=== PATIENT | male | born 1960 | race Two or more races ===

== ENCOUNTER 2020-02-23 02:21 | Emergency (ER) | payer BC ==
[~2020-02-23] VITALS: Ht 162.6 cm; Wt 79.4 kg
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
[2020-02-23] MEDS ORDERED: IBUPROFEN 400 MG TABLET PO ONE (02:30)
[2020-02-23] MEDS ORDERED: IBUPROFEN 400 MG TABLET ONE (02:33)
--- NOTE | 2020-02-23 02:40 | NUR ---
PT BROUGHT BY RADIOLOGY TO CT
--- NOTE | 2020-02-23 04:45 | NUR ---
Patient discharged to home in stable condition. Written and verbal after care instructions given. Patient verbalizes understanding of instruction.Pt ambulatory with a steady gait
[2020-02-23 04:46] VITALS: BP 113/70
== END 2020-02-23 04:46 | disposition home or self-care (01) ==
LOC: ER 02:24
DX: S13.9XXA Sprain of joints and ligaments of unspecified parts of neck, initial encounter (principal); V49.49XA Driver injured in collision with other motor vehicles in traffic accident, initial encounter; Y93.89 Activity, other specified; Y92.488 Other paved roadways as the place of occurrence of the external cause; Y99.8 Other external cause status
CPT/HCPCS: 72125; 99284; L0172